=== PATIENT | male | born 1975 | race Two or more races ===

== ENCOUNTER 2023-10-07 01:49 | Outpatient (CLI) | payer OTHER, SELFPAY | END 2023-10-07 01:50 | disposition home or self-care (01) | LOC: AMB 10-21 02:03 | PROVIDERS: Visit Provider Family Medicine | DX: S19.9XXA Unspecified injury of neck, initial encounter (principal); F10.129 Alcohol abuse with intoxication, unspecified; V47.0XXA Car driver injured in collision with fixed or stationary object in nontraffic accident, initial encounter; Y92.411 Interstate highway as the place of occurrence of the external cause; F10.10 Alcohol abuse, uncomplicated | CPT/HCPCS: A0425; A0427 ==